=== PATIENT | female | born 1975 | race African-American/Black ===

== ENCOUNTER 2017-02-18 15:00 | Emergency (ER) | payer SELFPAY ==
[~2017-02-18] VITALS: Ht 175.3 cm; Wt 152.0 kg
[~2017-02-18 15:00] MED LIST: HYDR-2768 PO; INDO25 PO; LISI-363 PO
[2017-02-18 15:09] VITALS: BP 178/111; PULSE 112; RESP 16; TEMP 98.5; O2SAT 100
[2017-02-18] MEDS ORDERED: LISI-515 PO (15:16)
[2017-02-18] MEDS ORDERED: IBUP800T23 PO (15:33)
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
== END 2017-02-18 15:41 | disposition home or self-care (01) ==
LOC: PHEFT 15:00
DX: M25.511 Pain in right shoulder (principal); I10 Essential (primary) hypertension; Z79.899 Other long term (current) drug therapy
CPT/HCPCS: 99283

== ENCOUNTER 2017-08-13 11:47 | Emergency (ER) | payer SELFPAY ==
[~2017-08-13] VITALS: Ht 175.3 cm; Wt 118.2 kg
[~2017-08-13 11:47] MED LIST changes: -HYDR-2768 PO; +IBUP1TAB7 PO; -INDO25 PO; -LISI-363 PO; +LISI-515 PO
[2017-08-13 11:49] VITALS: BP 232/117; PULSE 124; RESP 20; TEMP 100.8; O2SAT 100
--- NOTE | 2017-08-13 12:10 | PD ---
HPI Chief Complaint: Cold / Flu Symptoms Time Seen by Provider: 11:56 Travel History International Travel<30 days: No Contact w/Intl Traveler<30days: No Traveled to known affect area: No History of Present Illness HPI 42-year-old female presents to the emergency department with cold symptoms for approximately 1 week. States she has been coughing violently with productive white sputum, non bloody. Patient also states she has been nauseous but denies vomiting or diarrhea. Patient also denies fever or chills. Patient did not take her medication today which includes a blood pressure medication. Last menstrual period was the middle of June. Mild clear rhinorrhea. Patient does not smoke however, she lives in a household smokers. PFSH Past Medical History Arthritis: No Asthma: No Autoimmune Disease: No Blood Disorders: No Anxiety: No Depression: No Heart Rhythm Problems: No Cancer: No Cardiovascular Problems: No High Cholesterol: No Chemotherapy: No Chest Pain: No Congestive Heart Failure: No COPD: No Cerebrovascular Accident: No Diabetes: No Diminished Hearing: No Endocrine: No Gastrointestinal Disorders: Yes (GAS) GERD: No Glaucoma: No Genitourinary: No Headaches: No Hepatitis: No Hiatal Hernia: No Hypertension: Yes Immune Disorder: No Kidney Stones: No Musculoskeletal: No Neurologic: No Psychiatric: No Reproductive: Yes (MISCARRIAGE ) Respiratory: No Migraines: No Myocardial Infarction: No Radiation Therapy: No Renal Failure: No Seizures: No Sickle Cell Disease: No Sleep Apnea: No Thyroid Disease: No Ulcer: No ?: Not : 1 Para: 0 Past Surgical History Abdominal Surgery: No AICD: No Appendectomy: No Arteriovenous Shunt: No Cardiac Surgery: No Cholecystectomy: No Ear Surgery: No Endocrine Surgery: No Eye Surgery: No Genitourinary Surgery: No Gynecologic Surgery: No Insulin Pump: No Joint Replacement: No Oral Surgery: No Pacemaker: No Thoracic Surgery: No Social History Alcohol Use: No Tobacco Use: No Substance Use: No Allergies-Medications (Allergen,Severity, Reaction): Coded Allergies: No Known Allergies (Verified , 07/01/17) Reported Meds & Prescriptions Reported Meds & Active Scripts Active Medrol Dosepak (Methylprednisolone) 4 Mg Dspk 4 Mg PO DIRECTED Per Pharmacist direction Ventolin Hfa 18 GM Inh (Albuterol Sulfate) 90 Mcg/Act Aer 1 Puff INH Q4H PRN Tessalon Perles (Benzonatate) 100 Mg Cap 100 Mg PO TID PRN 5 Days Levaquin (Levofloxacin) 750 Mg Tablet 750 Mg PO DAILY 5 Days Ibuprofen 800 Mg Tab 800 Mg PO Q8H PRN Reported Lisinopril 20 Mg Tab 20 Mg PO DAILY Review of Systems Except as stated in HPI: all other systems reviewed are Neg Physical Exam Narrative GENERAL: Well-nourished, well-developed patient. SKIN: Focused skin assessment warm/dry. HEAD: Normocephalic. EYES: No scleral icterus. No injection or drainage. MOUTH: Mucous membranes moist, no lesions, tongue and gums appear normal. Posterior pharynx mildly irritated. NECK: Supple, trachea midline. No JVD or lymphadenopathy. CARDIOVASCULAR: Regular rate and rhythm without murmurs, gallops, or rubs. RESPIRATORY: Breath sounds equal bilaterally. No accessory muscle use. GASTROINTESTINAL: Abdomen soft, non-tender, nondistended. MUSCULOSKELETAL: No cyanosis, or edema. BACK: Nontender without obvious deformity. No CVA tenderness. Data Data Last Documented VS Vital Signs Date Time Temp Pulse Resp B/P (MAP) Pulse Ox O2 Delivery O2 Flow Rate FiO2 08/13/17 15:13 08/13/17 14:10 101 20 98 08/13/17 11:49 100.8 Room Air Orders Orders Basic Metabolic Panel (Bmp) (08/13/17 12:05) Complete Blood Count With Diff (08/13/17 12:05) Sodium Chloride 0.9% Flush (Ns Flush) (08/13/17 12:15) Ed Urine Pregnancytest Poc (08/13/17 12:05) Influenzae A/B Antigen (08/13/17 12:05) Chest, Single Ap (08/13/17 ) Lisinopril (Prinivil) (08/13/17 12:15) Sodium Chlor 0.9% 1000 Ml Inj (Ns 1000 M (08/13/17 13:00) Levofloxacin (Levaquin) (08/13/17 13:00) Ketorolac Inj (Toradol Inj) (08/13/17 13:00) Ketorolac Inj (Toradol Inj) (08/13/17 13:15) Ed Discharge Order (08/13/17 14:33) Labs Laboratory Tests Test 08/13/17 12:20 White Blood Count 16.7 TH/MM3 Red Blood Count 3.55 MIL/MM3 Hemoglobin 10.2 GM/DL Hematocrit 30.4 % Mean Corpuscular Volume 85.7 FL Mean Corpuscular Hemoglobin 28.7 PG Mean Corpuscular Hemoglobin Concent 33.5 % Red Cell Distribution Width 14.4 % Platelet Count 278 TH/MM3 Mean Platelet Volume 8.8 FL Neutrophils (%) (Auto) 77.4 % Lymphocytes (%) (Auto) 12.3 % Monocytes (%) (Auto) 9.9 % Eosinophils (%) (Auto) 0.3 % Basophils (%) (Auto) 0.1 % Neutrophils # (Auto) 12.9 TH/MM3 Lymphocytes # (Auto) 2.1 TH/MM3 Monocytes # (Auto) 1.6 TH/MM3 Eosinophils # (Auto) 0.1 TH/MM3 Basophils # (Auto) 0.0 TH/MM3 CBC Comment DIFF FINAL Differential Comment Blood Urea Nitrogen 13 MG/DL Creatinine 1.15 MG/DL Random Glucose 120 MG/DL Calcium Level 8.4 MG/DL Sodium Level 136 MEQ/L Potassium Level 3.6 MEQ/L Chloride Level 102 MEQ/L Carbon Dioxide Level 26.2 MEQ/L Anion Gap 8 MEQ/L Estimat Glomerular Filtration Rate 62 ML/MIN MDM Medical Decision Making Medical Screen Exam Complete: Yes Emergency Medical Condition: Yes Differential Diagnosis Upper respiratory infection versus flu versus RSV versus bronchitis vs pneumonia Narrative Course 42-year-old female presents to the emergency department with cold symptoms for approximately 1 week. States she has been coughing violently with productive white sputum, non bloody. Patient also states she has been nauseous but denies vomiting or diarrhea. Patient also denies fever or chills. Patient did not take her medication today which includes a blood pressure medication. Last menstrual period was the middle of June. Patient denies tobacco use however , he has a strong odor of tobacco smoke. States there is smoking in the house. Vital signs- BP elevated- lisinopril administered. HR- elevated. Fluid challenge Temp- elevated Pt has not seen PCP regarding this. Flu negative. CXR Clear Laboratory Tests Test 08/13/17 12:20 White Blood Count 16.7 TH/MM3 Red Blood Count 3.55 MIL/MM3 Hemoglobin 10.2 GM/DL Hematocrit 30.4 % Mean Corpuscular Volume 85.7 FL Mean Corpuscular Hemoglobin 28.7 PG Mean Corpuscular Hemoglobin Concent 33.5 % Red Cell Distribution Width 14.4 % Platelet Count 278 TH/MM3 Mean Platelet Volume 8.8 FL Neutrophils (%) (Auto) 77.4 % Lymphocytes (%) (Auto) 12.3 % Monocytes (%) (Auto) 9.9 % Eosinophils (%) (Auto) 0.3 % Basophils (%) (Auto) 0.1 % Neutrophils # (Auto) 12.9 TH/MM3 Lymphocytes # (Auto) 2.1 TH/MM3 Monocytes # (Auto) 1.6 TH/MM3 Eosinophils # (Auto) 0.1 TH/MM3 Basophils # (Auto) 0.0 TH/MM3 CBC Comment DIFF FINAL Differential Comment Blood Urea Nitrogen 13 MG/DL Creatinine 1.15 MG/DL Random Glucose 120 MG/DL Calcium Level 8.4 MG/DL Sodium Level 136 MEQ/L Potassium Level 3.6 MEQ/L Chloride Level 102 MEQ/L Carbon Dioxide Level 26.2 MEQ/L Anion Gap 8 MEQ/L Estimat Glomerular Filtration Rate 62 ML/MIN WBCs elevated. Will administer IV fluids, toradol, and levoquin. Pt appears non-toxic, frequent coughing, otherwise looks well. HR improved with fluid challenge. Pt feel better overall. She will be discharged with levaquin, tessalon pearles for evening use, medrol dose pack for cough, albuterol inhaler. Patient history instructions to return to the emergency department if her symptoms worsen or persist. Strongly advised patient to follow up with her primary care physician within 2 days. Diagnosis Primary Impression: Upper respiratory infection Qualified Codes: J06.9 - Acute upper respiratory infection, unspecified Referrals: Primary Care Physician Additional Instructions: Follow up with Primary care physician within 3 days. Take medication as needed for cough Take antibiotics as prescribed Or symptoms persist or worsen return to the emergency department Scripts Methylprednisolone Dosepak (Medrol Dosepak) 4 Mg Dspk 4 MG PO DIRECTED, #1 DSPK 0 Refills Per Pharmacist direction Prov: Radha Harrell MD 08/13/17 Albuterol 18 GM Inh (Ventolin Hfa 18 GM Inh) 90 Mcg/Act Aer 1 PUFF INH Q4H Y for SHORTNESS OF BREATH, #1 INHALER 0 Refills Prov: Radha Harrell MD 08/13/17 Benzonatate (Tessalon Perles) 100 Mg Cap 100 MG PO TID Y for COUGH for 5 Days, CAP 0 Refills Prov: Radha Harrell MD 08/13/17 Levofloxacin (Levaquin) 750 Mg Tablet 750 MG PO DAILY for Infection for 5 Days, #5 TAB 0 Refills Prov: Radha Harrell MD 08/13/17 Disposition: 01 DISCHARGE HOME Condition: Stable Pina Pardo Aug 13, 2017 12:10
[2017-08-13] MEDS ORDERED: LISINOPRIL 20 MG TAB PO ONE (12:15)
[2017-08-13] MEDS ORDERED: SODIUM CHLORIDE 0.9% FLUSH 10 ML FLUSH IVF PRN (12:15)
[2017-08-13 12:41] LABS: AUTOMATED NEUTROPHIL # 12.9 TH/MM3 (1.8-7.7); BASOPHIL % 0.1 % (0.0-2.0); EOSINOPHIL # 0.1 TH/MM3 (0-0.4); EOSINOPHIL % 0.3 % (0.0-4.0); HEMATOCRIT 30.4 % (35.0-46.0); HEMO FLAGS DIFF FINAL; LYMPH % 12.3 % (9.0-44.0); LYMPHOCYTE # 2.1 TH/MM3 (1.0-4.8); MEAN CELL VOLUME 85.7 FL (80.0-100.0); MEAN CORPUSCULAR HEMOGLOBIN 28.7 PG (27.0-34.0); MEAN CORPUSCULAR HGB CONC 33.5 % (32.0-36.0); MONO % 9.9 % (0.0-8.0); NEUT % 77.4 % (16.0-70.0); PLATELET COUNT 278 TH/MM3 (150-450); RED BLOOD COUNT 3.55 MIL/MM3 (4.00-5.30); RED CELL DISTRIBUTION WIDTH 14.4 % (11.6-17.2); WHITE BLOOD COUNT 16.7 TH/MM3 (4.0-11.0)
--- NOTE | 2017-08-13 12:43 | RADRPT ---
EXAM DATE/TIME: 08/13/2017 12:31 [facility] COMPARISON: No previous studies available for comparison. INDICATIONS : Cough, fever, and congestion for 1 week. MEDICAL HISTORY : None. SURGICAL HISTORY : None. ENCOUNTER: Initial ACUITY: 1 day PAIN SCORE: 0/10 LOCATION: Bilateral chest FINDINGS: A single view of the chest demonstrates the lungs to be symmetrically aerated without evidence of mas s, infiltrate or effusion. The cardiomediastinal contours are unremarkable. Osseous structures are intact. CONCLUSION: Normal examination. Neeraj Mckeon MD on August 13, 2017 at 12:41 Board Certified Radiologist. This report was verified electronically.
[2017-08-13] MEDS ORDERED: LEVOFLOXACIN 750 MG TAB PO ONE (13:00)
[2017-08-13] MEDS ORDERED: KETOROLAC TROMETHAMINE 60 MG/2 ML (IM) VIAL IM ONE (13:00)
[2017-08-13] MEDS ORDERED: SODIUM CHLOR 0.9% 1000 ML INJ 1,000 ML IV ONE (13:00)
[2017-08-13 13:01] LABS: BICARBONATE 26.2 MEQ/L (21.0-32.0); POTASSIUM 3.6 MEQ/L (3.5-5.1)
[2017-08-13] MEDS ORDERED: KETOROLAC TROMETHAMINE 30 MG/ML (IVP) VIAL IV PUSH ONE (13:15)
[2017-08-13] MEDS ORDERED: LEVA750T9 PO (14:06)
[2017-08-13] MEDS ORDERED: BENZ100 PO (14:06)
[2017-08-13] MEDS ORDERED: VENTAER INH (14:06)
[2017-08-13 14:10] VITALS: BP 177/91; PULSE 101; RESP 20; O2SAT 98
[2017-08-13] MEDS ORDERED: MEDR4PAK PO (14:30)
== END 2017-08-13 15:13 | disposition home or self-care (01) ==
LOC: NEPD 11:47
DX: J06.9 Acute upper respiratory infection, unspecified (principal); I10 Essential (primary) hypertension
CPT/HCPCS: 71010; 80048; 84703; 85025; 87804; 96372; 96374; 99284; J1885; J7030